=== PATIENT | female | born 1955 | race African-American/Black ===

== ENCOUNTER 2023-12-01 14:35 | Emergency (ER) | payer MEDICARE, OTHER ==
[~2023-12-01] VITALS: Ht 167.6 cm; Wt 120.0 kg
[2023-12-01 14:38] VITALS: TEMP 98.2; O2SAT 100
[2023-12-01] MEDS ORDERED: POTASSIUM (14:45)
[2023-12-01] MEDS ORDERED: MELOXICAM (14:45)
[2023-12-01] MEDS ORDERED: HYDROCHLOROTHIAZIDE (14:45)
[2023-12-01] MEDS ORDERED: CYCLOBENZAPRINE (14:45)
[2023-12-01] MEDS ORDERED: VERAPAMIL (14:45)
[2023-12-01] MEDS: TETANUS, DIPHTHERIA, PERTUSSIS VAC/PF 0.5ML (>10YR OLD) IM ONE (15:43)
[2023-12-01] MEDS: ACETAMINOPHEN 325MG TABLET PO ONE (15:44)
[2023-12-01 15:52] LABS: BASOPHILS % 0.6 % (0.0-2.0); EOSINOPHILS % 0.6 % (0.0-5.0); HEMATOCRIT. 38.5 % (36.0-48.0); HEMOGLOBIN. 12.9 g/dL (12.0-16.0); LYMPHOCYTES % 39.3 % (20.0-50.0); MEAN CORPUSCULAR HEMOGLOBIN 29.8 pg (28.0-32.0); MEAN CORPUSCULAR HGB CONC 33.4 g/dL (31.0-37.0); MEAN CORPUSCULAR VOLUME 89.4 fL (81.0-99.0); MEAN PLATELET VOLUME 9.5 fl (7.4-10.4); MONOCYTES % 6.4 % (2.0-8.0); NEUTROPHILS % 53.1 % (40.0-76.0); PLATELET 285 x1000/uL (130-400); RED BLOOD CELL COUNT 4.31 mill/uL (4.2-5.4); RED CELL DISTRIBUTION WIDTH 13.4 % (11.6-14.6); WHITE BLOOD COUNT 5.4 x1000/uL (4.5-11.0)
[2023-12-01 16:02] LABS: CHLORIDE 107 mEq/L (98-107); POTASSIUM 3.3 mEq/L (3.5-5.1); SODIUM 142 mEq/L (136-145)
[2023-12-01 16:03] LABS: CALCIUM 9.3 mg/dL (8.7-10.4); CARBON DIOXIDE 26 mEq/L (21-32)
[2023-12-01 16:08] LABS: CREATININE 0.9 mg/dL (0.6-1.0); GLUCOSE 92 mg/dL (70-105); UREA NITROGEN BLOOD 16 mg/dL (9-23)
[2023-12-01 16:09] LABS: TROPONIN I HIGH SENSITIVITY 4 ng/L (3.0-34)
[2023-12-01 16:10] LABS: ALANINE AMINOTRANSFERASE 26 IU/L (10-49); ALBUMIN 4.7 g/dL (3.2-4.8); ASPARTATE AMINOTRANSFERASE 37 IU/L (<34); BILIRUBIN DIRECT 0.2 mg/dL (<=3.0); BILIRUBIN TOTAL 0.5 mg/dL (0.1-1.0)
[2023-12-01] MEDS ORDERED: LIDOCAINE HCL/EPINEPHRINE 1%-EPI 1:100,000 20 ML VIAL INFIL ONE (16:30)
[2023-12-01 18:55] VITALS: BP 128/77; PULSE 76; RESP 16
== END 2023-12-01 18:57 | disposition left against medical advice (07) ==
LOC: ER 14:35 → EDBEDREQ 15:14 → CANBEDREQ 18:07 → ER 18:57
DX: S85.142A Laceration of anterior tibial artery, left leg, initial encounter (principal); M79.605 Pain in left leg; R55 Syncope and collapse; I10 Essential (primary) hypertension; V49.49XA Driver injured in collision with other motor vehicles in traffic accident, initial encounter; Y93.89 Activity, other specified; Y92.89 Other specified places as the place of occurrence of the external cause; Y99.8 Other external cause status
CPT/HCPCS: 99291; 70450; 80076; 80048; 85025; 84484; 36415; 73502; 73552; 71045; 73562; 73590; 90715; 93005; 90471; J3490